=== PATIENT | female | born 1960 | race Caucasian/White ===

== ENCOUNTER 2024-12-06 16:39 | Inpatient (IN) | payer MEDICARE, SELFPAY ==
[2024-12-06] VITALS (11 sets, daily range): BP systolic 164–205; BP diastolic 93–137; BMI 39.0
[2024-12-06 12:15] LABS: % Basophils 0.4 % (0-2); % Eosinophils 0.1 % (0-6); % Immature Granulocytes 0.4 % (0-0.5); % Lymphocytes 18.6 % (20.5-51.1); % Monocytes 3.5 % (1.7-9.3); Absolute Basophils 0.1 10^3/uL (0-0.2); Absolute Immature Granulocytes 0.1 10^3/uL (0-0.05); Absolute Lymphocytes 2.6 10^3/uL (1.2-3.4); Absolute Monocytes 0.5 10^3/uL (0.1-0.6); Absolute Neutrophils 10.5 10^3/uL (1.4-6.5); Hematocrit 47.9 % (37.0-47.0); Hemoglobin 16.6 g/dL (12.0-16.0); Mean Corp Hgb Conc. 34.7 g/dL (33.0-37.0); Mean Corpuscular Hgb 29.4 pg (27.0-31.0); Mean Corpuscular Volume 84.9 fL (81.0-99.0); Mean Platelet Volume 8.3 fL (7.4-10.4); Nucleated Red Blood Cells % 0 %; Platelet Count 309 10^3/uL (130-400); Red Blood Cell Count 5.64 10^6/uL (4.20-5.40); Red Cell Dist. Width 13.6 % (11.5-14.5); White Blood Cell Count 13.7 10^3/uL (4.8-10.8)
--- NOTE | 2024-12-06 12:15 | ED.GENMED ---
History of Present Illness
General
Chief Complaint: Abdominal Symptoms
Source: patient
Exam Limitations: none
Time Seen by Provider: 12/06/24 11:59
Nursing documentation reviewed up to this point in time: agreed with
History of Present Illness
History of Present Illness:
Patient is a 64-year-old female who presents to the ER for evaluation. Patient started with nausea vomiting diarrhea last night. Patient does have a history of anxiety and reports now she is having a panic attack
She denies any associated fever or chills. She lives with her daughter and there were no other sick contacts. She does complain of crampy abdominal discomfort now. She was given Zofran prior to arrival and complains of persistent nausea.
She denies any urinary frequency urgency dysuria. Denies any associated chest pain shortness of breath.
Review of Systems
Review of Systems
Allergies reviewed?: Yes
All Other Systems: ROS reviewed and negative except as documented in HPI and ROS
Constitutional: Denies fever, fatigue or chills
EENT: Reports no symptoms
Respiratory: Reports no symptoms
Cardiac: Reports no symptoms
ABD/GI: Reports abdominal pain, nausea, vomiting and diarrhea
: Reports no symptoms
Musculoskeletal: Reports no symptoms
Skin: Reports no symptoms
Neurological: Reports no symptoms
Psychiatric: Reports no symptoms
Phy Exam
General Physical Exam
General Presentation: no apparent distress
General age: appears stated age
General Skin: warm and dry
General Habitus: normal
General Mental: alert
General Hydration: dry mucous membranes
Cardiovascular Exam
Cardiovascular Exam: regular rate/rhythm, no murmur and normal peripheral pulses
Pulmonary Exam
Pulmonary Exam: lungs clear
Gastrointestinal Exam
Gastrointestinal Exam: non tender and soft
Neurological Exam
Neurological Exam: alert and oriented x3
Musculoskeletal Exam
Musculoskeletal Exam: full ROM
Skin Exam
Skin Exam: normal color and warm/dry
Psychiatric Exam
Psychiatric Exam: normal mood/affect
Course
Orders/Labs/Results
Orders:
Orders
12/06/24 12:01
IV Insert/Care/Rem.- Treatment PRN
12/06/24 12:07
Complete Blood Count/With Diff Urgent
Comprehensive Metabolic Panel Urgent
Lipase Urgent
12/06/24 12:13
Lorazepam [Ativan] 1 mg IV NOW STA
12/06/24 12:14
Dicyclomine HCl [Bentyl] 20 mg IM NOW STA
12/06/24 12:15
0.9% Sodium Chloride 1000 ml [Nss] 1,000 ml IV BOLUS
Ondansetron Injectable [Zofran] 4 mg IV NOW STA
12/06/24 13:46
Metoclopramide [Reglan] 10 mg IV NOW STA
12/06/24 13:47
Diphenhydramine [Benadryl] 25 mg IV NOW STA
12/06/24 15:42
Lorazepam [Ativan] 1 mg IV NOW STA
12/06/24 15:43
Electrocardiogram (*1) Stat
Reason for Study: Other
Other Reason for Exam: chest pain
Cardiac Monitoring- Treatment ONCE
EKG- Treatment ONCE
12/06/24 15:58
Ondansetron Injectable [Zofran] 4 mg .ROUTE .STK-MED ONE
Ondansetron Injectable [Zofran] 4 mg IV NOW STA
12/06/24 16:22
Admit/Transfer Patient As Directed
Co-Sign Provider:
Level of Care: Inpatient admission
Assign to:: Telemetry
Physician / Group: alessandra
Diagnosis: gastroenteritis
Reason for Telemetry: Arrhythmia
Date to Stop Telemetry: 12/09/24
Time to Stop Telemetry: 11:00
Reason for Hospitalization: gastroenteritis
tachcyardia, htn urgency
Expected length of stay greater than two midnights?: Yes
ELOS- Estimated Length of Stay in days: 3
I certify the patient meets the requirements for IP care: Yes
PRN Pain Medication Management As Directed
May give lesser potent ordered pain med per pt: Yes
preference::
Protocol:: Medication orders for pain may be administered in a
manner that supports deferring to patient preference
when the pt is:
- Requesting an ordered lesser potent pain medication.
Least to most potent pain medications are defined
as: acetaminophen < NSAID < tramadol < opioids
(morphine, oxycodone, hydromorphone).
- Requesting a lesser dose of the same medication IF
ORDERED.
- Requesting a less intrusive route of administration
if both routes are prescribed by the provider (PO <
IV).
12/06/24 16:23
Code Status As Directed
Resuscitation Status: Full Code
12/06/24 16:27
COVID-19 Antigen Urgent
Source: Nasal Swab
Influenza A+B Rapid Molecular Urgent
CATHY Source: Nasal Swab
Specimen Description:
12/06/24 16:29
Abdomen/Pelvis w Contrast CT [CT Abd/pelvis W Iv Cont] Routine
Comment:
Reason For Exam: abdominal pain
12/06/24 16:30
Norovirus by PCR Routine
CATHY Source: Feces/Stool
Specimen Description:
Stool Culture Routine
CATHY Source: Feces/Stool
Specimen Description:
Stool For WBC Routine
CATHY Source: Feces/Stool
Specimen Description:
Metoprolol [Lopressor] 5 mg IV NOW STA
12/06/24 16:35
Ketorolac [Toradol] 10 mg IV NOW STA
12/06/24 19:21
0.9% Sodium Chloride 1000 ml [Nss] 1,000 ml IV 80 mls/hr
Alprazolam [Xanax] 1 mg PO TIDPRN PRN
Dextrose 50%-Water [Dextrose 50% Syringe] 12.5 grams IV [id number] PRN
Glucagon [GlucaGen] 1 mg IM PRN PRN
HydrALAZINE [Apresoline] 5 mg IV Q6HPRN PRN
Insulin Aspart Corrective Low [Novolog Flexpen-Low Resistance] See Protocol SC AC
Metoprolol [Lopressor] 5 mg IV Q6
Ondansetron Injectable [Zofran] 4 mg IV Q6HPRN PRN
12/06/24 19:21
Activity As Directed
Activity Level: As Tolerated
Bedside Glucose Monitoring As Directed
Frequency: AC&HS
Additional Instructions:: Change to q6h if pt on TPN, tube feeding or not eating
Vital Signs As Directed
Frequency: Per unit guidelines
DX Deep Vein Thrombosis Video Routine
12/06/24 20:00
Apixaban [Eliquis] 5 mg PO BID
Gabapentin [Neurontin] 300 mg PO BID
12/07/24 Breakfast
NPO
Allow oral meds: Yes
Allow clear liquids: Sips of Clears
Complete Blood Count/No Diff IN AM
Glycohemoglobin (HgbA1c) IN AM
Levothyroxine [Synthroid] 125 mcg PO DAILY @ 0600
12/08/24 06:00
Complete Blood Count/No Diff IN AM
12/09/24 06:00
Complete Blood Count/No Diff IN AM
12/09/24 11:00
DC Protocol for Telemetry ONCE
12/10/24 06:00
Complete Blood Count/No Diff IN AM
Abnormal Lab Results
12/06/24
12:07
WBC 13.7 H 10^3/uL
(4.8-10.8)
RBC 5.64 H 10^6/uL
(4.20-5.40)
Hgb 16.6 H g/dL
(12.0-16.0)
Hct 47.9 H %
(37.0-47.0)
Abs Immat Gran (auto) 0.1 H 10^3/uL
(0-0.05)
Absolute Neuts (auto) 10.5 H 10^3/uL
(1.4-6.5)
Neutrophils % 77.0 H %
(42.2-75.2)
Lymphocytes % 18.6 L %
(20.5-51.1)
Carbon Dioxide 17 L mmol/L
(22-30)
Creatinine 0.5 L mg/dL
(0.6-1.0)
Glucose 165 H mg/dl
(70-99)
Alkaline Phosphatase 158 H U/L
(38-126)
Albumin 5.1 H g/dl
(3.5-5.0)
12/06/24 12:07
12/06/24 12:07
Vital Signs
Initial and Last Documented VS:
Initial Vital Signs
Pulse Resp
103 17
12/06/24 12:04 12/06/24 12:04
Last Documented Vital Signs
Temp Pulse Resp BP Pulse Ox
98.8 F 99 20 138/69 95
12/07/24 19:17 12/07/24 19:17 12/07/24 19:17 12/07/24 19:17 12/07/24 19:17
MDM/Problems Addressed
Differential Diagnosis Includes:
Not limited to intractable nausea vomiting, viral syndrome, dehydration
MDM/Problems Addressed:
Patient is a 64-year-old female who presented with nausea vomiting diarrhea since yesterday. Patient does have a history of anxiety and presented extremely anxious. Patient was medicated multiple times with antiemetic fluids and anxiety medicine
however remains anxious and vomiting. Patient is hypertensive does have a history of hypertension.
Patient is afebrile with a white count of 13,000, normal renal function.
Patient will require admission for intractable nausea vomiting.
*Pulse Oximetry
Patient hypoxic: no
*EKG
Interpreted by ED Provider?: Yes
Heart Rate: 104
Rate: tachycardiac (Can I I swabbed her for completeness sake for admission)
Rhythm: sinus
Ischemia: no ischemia
*Critical Care Note
Total Time (30-74mins, 75-104mins- exclusive of procedures): Not Applicable
ED Attending Note
-
Portions of this chart may have been created with voice recognition software.� Occasional wrong word or��sound alike� substitutions may have occurred due to the inherent limitations of voice recognition software.
Discharge Plan
Departure
Patient Disposition: Admit
Date of Disposition: 12/06/24
Time of Disposition: 16:07
Admit to: Telemetry
Admit to doctor: hospitalist
Presentation/result/management discussed w/ accepting MD/DO: Hospitalist
Patient with high blood pressure during this ER visit?: Yes
Condition: Fair
Covid-19: Not Applicable
Discharge Problem:
intractable vomiting and diarrhea
Interventions
Interventions:
*Risk Screen - Suicide Last Done: 12/06/24 12:06
*General Assessment Last Done: 12/06/24 12:06
*Neglect/Abuse Screening Last Done: 12/06/24 12:06
*ED- Fall Risk Assessment Last Done: 12/06/24 12:01
*ED COVID-19 Vaccine History Last Done: 12/06/24 12:06
*Nursing Disposition Last Done: 12/06/24 19:22
EK-Fbdglm-Opehjqizld Assessment Last Done: 12/06/24 12:00
Discharge Date and Time
Discharge Date/Time: 12/06/24 19:23
[2024-12-06] MEDS: ZOFRAN 4 MG IV ×2 (12:19→16:00)
[2024-12-06] MEDS: ATIVAN 1 MG IV ×3 (12:19→23:00)
[2024-12-06] MEDS: NSS 1000 IV ×2 (12:21→20:17)
[2024-12-06] MEDS: BENTYL 20 MG IM (12:21)
[2024-12-06 12:34] LABS: ALT (SGPT) 20 U/L (0-35); AST (SGOT) 21 U/L (14-36); Albumin 5.1 g/dl (3.5-5.0); Alkaline Phosphatase 158 U/L (38-126); Blood Urea Nitrogen 9 mg/dl (7-17); Calcium 9.9 mg/dl (8.4-10.2); Carbon Dioxide 17 mmol/L (22-30); Chloride 106 mmol/L (98-107); Glucose 165 mg/dl (70-99); Lipase 70 U/L (23-300); Sodium 140 mmol/L (135-145); Total Bilirubin 0.9 mg/dl (0.2-1.3); Total Protein 7.8 g/dl (6.3-8.2); eGFR > 60.00
[2024-12-06] MEDS: BENADRYL 25 MG IV (13:53)
[2024-12-06] MEDS: REGLAN 10 MG IV (13:53)
--- NOTE | 2024-12-06 16:05 | HPS.HSE ---
Addendum entered and electronically signed by Viviana Oh MD 12/06/24 17:05:
I saw and examined the patient.
The MAGNETO REPAIRER or PA's note was reviewed and I agree with the note.
Comment:
CVS: S1-S2 normal
Chest: CTA B/L
Abdomen: Soft, Mild epigastric tenderness, Bowel sounds present
Extremities: No edema, normal pulses
COMMUNITY RELATIONS ADVISOR: Very fidgety and anxious , restless
Pt ate out yesterday ( Tacos) then got sick with N/V/D/ Numerous times . No fever, no other sick contacts at home.
EKG reviewed by me-sinus tachycardia transition to first-degree AV block with PACs. QTc 420
# Nausea Vomiting and Diarrhea
Possible GE.
But with tenderness, will get a CT
Admit to Obs
NPO except sips
Get stool studies,
Anti Nausea meds and analgesics
PPI
# Severe anxiety
Patient takes Xanax as outpatient
Ativan given because of intractable vomiting
Denies any depression
# Diabetes-patient takes Mounjaro and Jardiance
Because of n.p.o. status hold off
Accu checks and SSI
# Hypertension-elevated blood pressure likely secondary to distress
Poor p.o. intake
IV Lopressor because of intractable vomiting. As needed hydralazine also ordered
# Anion gap metabolic acidosis likely starvation ketosis-continue IV fluids and follow
# Hyperlipidemia-on Repatha
# Hypothyroidism-continue Synthroid
# Elevated hemoglobin 16.6 likely secondary to hemoconcentration
# Paroxysmal atrial fibrillation-continue Eliquis and IV metoprolol
# GERD-continue PPI
# DVT prophylaxis-SCDs
# Full code
Original Note:
Family Physician
-
Family Physician: INTERVIEWE UNKNOWN - PT NOT
Chief Complaint
-
n/v/d epigastric pain
History of Present Illness
64-year-old female with past medical history for A-fib, fibromyalgia, diabetes type 2 as with mid upper epigastric pain since last night. Patient stated multiple episodes of nausea vomiting and diarrhea. She is not able to tolerate any oral
intake. Patient is extremely anxious. She is dizzy. Denied headache or syncope. Denied chest pain or short of breath. Patient denied dysuria hematuria. Denied any sick contact.
Patient received Bentyl, Ativan, Reglan, normal saline, Zofran in ER
Medical History
Past Medical History
Past Medical History: Reports Other
Additional Past Medical History:
Type 2 diabetes
Hypertension
Hypothyroidism
Past Surgical History: Reports Other
Additional Past Surgical History:
Colon resection
Skin cancer removed
Bilateral knee replacement
Cholecystectomy
Total hysterectomy
Thyroidectomy
Social History
Tobacco: Non-smoker
Alcohol: Occasional
Drug: None
Living: With Family
Family History
Family History: Not pertinent
Allergies / Home Medications
Allergies reflects when Allergies were last updated in [facility].
Home Medications with original date entered in [facility]
Allergy/Medication List:
Allergies
Allergy/AdvReac Type Severity Reaction Status Date / Time
acetaminophen [From Tylenol] Allergy Pharmacy Verified 12/06/24 12:05
to Review
diltiazem [From Cardizem] Allergy Rash Verified 12/06/24 12:05
doxycycline [From Vibramycin] Allergy Rash Verified 12/06/24 12:05
Penicillins Allergy Rash Verified 12/06/24 12:05
Review of Systems
-
Constitutional: Reports No Symptoms
EENT: Reports No Symptoms
Respiratory: Reports No Symptoms
Cardiac: Reports No Symptoms
Abdomen/GI: Reports Abdominal Pain, Nausea, Vomiting and Diarrhea
: Reports No Symptoms
Musculoskeletal: Reports No Symptoms
Skin: Reports No Symptoms
Neurological: Reports No Symptoms
Endocrine: Reports No Symptoms
Hematologic/Lymphatic: Reports No Symptoms
Psych: Reports No Symptoms
Physical Exam
Vital Signs
Vital Signs
Temp Pulse Resp BP Pulse Ox
98.0 F 100 17 178/114 97
12/06/24 12:07 12/06/24 15:15 12/06/24 15:15 12/06/24 13:16 12/06/24 15:38
Physical Exam
General: Well Developed, Well Nourished and No Apparent Distress
HEENT: NormoCephalic, Moist mucous membranes and Atraumatic
Respiratory: Clear
Cardiac: S1/S2 and Regular Rhythm; No Murmur or Rub
GI: Soft, Non Distended, Normal Bowel Sounds and Tender; No Organomegaly
Rectal: Deferred by Provider
Musculoskeletal: No Clubbing, No Cyanosis and No Edema
Skin: No Rash
Neuro: AO x 3 and Nonfocal/grossly intact
Psych: Calm
Laboratory Results
-
12/06/24 12:07
12/06/24 12:07
Laboratory Results
Total Bilirubin 0.9 mg/dl (0.2-1.3) 12/06/24 12:07
AST 21 U/L (14-36) 12/06/24 12:07
ALT 20 U/L (0-35) 12/06/24 12:07
Alkaline Phosphatase 158 U/L (38-126) H 12/06/24 12:07
Lipase 70 U/L (23-300) 12/06/24 12:07
Data Reviewed
-
Lab Data: Labs Reviewed by me
Impression/Plan
-
# Intractable nausea/vomiting and diarrhea likely gastroenteritis
- Stool for culture, norovirus
- N.p.o. with sips of clears
-PPI
-Toradol once in ER
-CT abdomen pelvis
-Zofran prn for n/v
# Anxiety
-Xanax from home continued
# Leukocytosis likely stress reaction
- WBC 13.7, patient is afebrile
- Continue to monitor
# Hemoconcentration likely dehydration
# Anion gap metabolic acidosis
- Hemoglobin 16.6, hematocrit 47.9
- Fluids continued
- CBC in a.m.
# Hypertension emergency
# Sinus tachycardia
- Blood pressure elevated in ER
- EKG sinus tachycardia
-Hydralazine prn for HTN
-Lopressor every 6
-hold Lasix
#hypothyroidism
-levothyroxine continued
#type 2 DM
-sliding scale
-monitor blood sugar
-Jardiance
#atrial fib
-eliquis and metoprolol continued with hold parameter
#DVT prophylaxis
-scd
#CODE status
-full code
--- NOTE | 2024-12-06 16:28 | PHANOTE ---
med rec tech(12/06/24)- Patient was reluctant to go over medications in interview due to symptoms, but she allowed me to review the prescriptions I had on file from [facility] with her. She was unwilling to go further than that on meds, so may be
an incomplete list.
[2024-12-06] MEDS: TORADOL 10 MG IV (16:44)
[2024-12-06] MEDS: LOPRESSOR 5 MG IV ×3 (16:45→23:56)
[2024-12-06 17:20] LABS: COVID-19 Antigen Negative (Negative)
[2024-12-06] MEDS: PROTONIX IV 40 MG IV (17:46)
[2024-12-06] MEDS: NSS (PRESERVATIVE FREE) 10 ML IV (17:46)
[2024-12-06] MEDS: COMPAZINE 5 MG IV (20:17)
[2024-12-06] MEDS: MORPHINE SULFATE 2 MG IV ×2 (20:18→23:46)
--- NOTE | 2024-12-06 21:01 | PTCARENOTE ---
Received pt from the ED; AAOx3, walks independently from stretcher to hospital bed. Pt c/o active N/V and pain throughout abd 8/10 on pain scale. D/w covering CANDLE CUTTER, STAT morphine ordered and given, see MAR. Pt states Zofran does not relieve her
nausea but she has had success in the past with Compazine, PRN added and given, see MAR. Placed on tele, sinus tachycardia on the monitor. Hypoactive bowel sounds, abd tender to palpation. Remainder of assessment as documented. Hypertensive on
arrival, pt receiving Q6 IV Lopressor, will reassess BP s/p. Oriented to unit and call cook, updated on POC.
[2024-12-06] MEDS: NEURONTIN PO (22:25)
[2024-12-06] MEDS: ELIQUIS PO (22:25)
[2024-12-06] MEDS: APRESOLINE 5 MG IV (22:26)
[2024-12-06] MEDS: NSS (PRESERVATIVE FREE) 0.5 ML IV (23:01)
--- NOTE | 2024-12-06 23:05 | PTCARENOTE ---
Pt remains hypertensive s/p IV Lopressor, PRN Hydralazine given. Pt c/o anxiety and requesting medication but continues to c/o persistent nausea despite Compazine. D/w covering FLOOR MECHANIC pt unable to tolerate ordered PO Xanax, STAT IV Ativan ordered and
given, see OCT.
[2024-12-07 00:06] LABS: Glucose - Point of Care 131 mg/dl (70-99)
[2024-12-07] MEDS: COMPAZINE 5 MG IV ×2 (02:24→08:30)
[2024-12-07 03:40] VITALS: BP 139/85
[2024-12-07 05:29] VITALS: BMI 39.1
[2024-12-07] MEDS: LOPRESSOR 5 MG IV ×3 (05:53→23:32)
[2024-12-07 05:58] LABS: Glucose - Point of Care 116 mg/dl (70-99)
[2024-12-07] MEDS: ZOFRAN 4 MG IV (06:21)
[2024-12-07 07:08] LABS: Hematocrit 43.8 % (37.0-47.0); Hemoglobin 15.1 g/dL (12.0-16.0); Mean Corp Hgb Conc. 34.5 g/dL (33.0-37.0); Mean Corpuscular Hgb 29.5 pg (27.0-31.0); Mean Corpuscular Volume 85.5 fL (81.0-99.0); Mean Platelet Volume 8.3 fL (7.4-10.4); Platelet Count 279 10^3/uL (130-400); Red Blood Cell Count 5.12 10^6/uL (4.20-5.40); Red Cell Dist. Width 13.7 % (11.5-14.5); White Blood Cell Count 13.2 10^3/uL (4.8-10.8)
[2024-12-07 07:55] VITALS: BP 152/84
[2024-12-07] MEDS: NSS 1000 IV ×2 (08:17→22:01)
[2024-12-07] MEDS: PROTONIX IV 40 MG IV (08:21)
[2024-12-07] MEDS: NEURONTIN PO ×2 (08:22→22:02)
[2024-12-07] MEDS: SYNTHROID PO (08:22)
[2024-12-07] MEDS: ELIQUIS PO ×2 (08:22→22:02)
[2024-12-07] MEDS: NSS (PRESERVATIVE FREE) 10 ML IV (08:22)
[2024-12-07] MEDS: MORPHINE SULFATE 2 MG IV (08:38)
[2024-12-07 09:06] LABS: Hepatitis C Antibody Negative (Negative)
[2024-12-07 09:30] LABS: Amphetamines Negative (Negative); Barbiturates Negative (Negative)
[2024-12-07 09:31] LABS: Benzodiazepines Positive (Negative); Buprenorphine Negative (Negative); Cocaine Negative (Negative); Marijuana Positive (Negative); Methadone Negative (Negative); Methamphetamines Negative (Negative); Opiates Positive (Negative); Phencyclidine Negative (Negative)
[2024-12-07 09:32] LABS: Tricyclic Antidepressants Negative (Negative)
[2024-12-07 09:52] LABS: Glycohemoglobin (HgbA1c) 5.4 % (4.0-5.6)
[2024-12-07 10:54] LABS: Fentanyl, Urine Negative (Negative)
[2024-12-07 11:47] VITALS: BP 127/71
[2024-12-07 12:01] LABS: Glucose - Point of Care 114 mg/dl (70-99)
[2024-12-07] MEDS: ATIVAN 0.5 MG IV (12:02)
--- NOTE | 2024-12-07 12:34 | CM ---
Met with pt at bedside; Initial assessment completed
Pt lives with her daughter and son-in-law in a 2 story home; 2 [address], FF set-up
Independent, ambulates with out device, drives
DME - none
SNF/HH - no past hx JAG in past for outpatient PT
Has ride at d/c
PCP - Crispin Villanueva
Pharm - [facility]
Plan - anticipate home no needs
--- NOTE | 2024-12-07 14:26 | CS.PSYCHR ---
Consult Summary - Psychiatry
-
Pt is a 64 yo female with history of anxiety, past medical history of A-fib, fibromyalgia, diabetes type 2, who presented c/o multiple episodes of nausea, vomiting and diarrhea. She has not able to tolerate any oral intake, reportedly extremely
anxious. Pt was given Ativan 1 mg IV yesterday (day of admission) afternoon and night. Pt seen resting in bed, not in acute distress at present. She reports nausea/vomiting make her very anxious/panicky. She is prescribed Xanax 1 mg TID by her
PCP, but reports she does not take it every day, only on prn basis a couple times per week at night and for situational anxiety/panic, sometimes takes 1/2 tab. Pt complains of itching and redness from dose of IV morphine, causing her to ask for
Benadryl. Pt denies any depression. She reports some recent stress from working on a project with her , who is a CPA.
Psych Hx: anxiety/ situational panic, reports she was on Xanax for 20 years, then weaned herself off over a summer. She resumed Xanax a few years ago.
No hx of inpatient treatment. Past therapy/marriage counseling years ago. Brand Xanax 1 mg prescribed by her PCP- [facility] shows last refilled on 11/22/24 #90 tabs
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 Has worked helping her
MSE: alert, oriented, calm, cooperative, pleasant, with good eye contact. Speech coherent, thought goal-directed. Affect full and appropriate, mood stable, mildly anxious at present. Insight appears good
Imp: Unspecified anxiety, with panic. Situational anxiety reaction due to nausea/vomiting. Long-term Rx Xanax 1 mg on prn basis
Rec: Would continue to utilize IV Ativan prn, need to increase to at least 1 mg due to relative potency compared to home med Xanax
Would resume established Xanax 1 mg prn when able to take po. Outpatient f/u with PCP when medically stable.
Will follow
--- NOTE | 2024-12-07 14:36 | W.PN.HOSP.TC ---
Today's Communication/Plan
-
Start clears and advance as tolerated to full liquids and to diabetic diet
Assessment / Plan
Assessment / Plan
CVS: S1-S2 normal
Chest: CTA B/L
Abdomen: Soft, Mild epigastric tenderness, Bowel sounds present
Extremities: No edema, normal pulses
ADMINISTRATION SPECIALIST: Very fidgety and anxious , restless
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 No fever, no other sick contacts at home.
EKG reviewed by me-sinus tachycardia transition to first-degree AV block with PACs. QTc 420
CT abdomen and pelvis-postoperative changes of right hemicolectomy with mild wall thickening throughout the procedure: Representing mild colitis. Prior cholecystectomy. Small hiatal hernia.
# Nausea Vomiting and Diarrhea
Possible GE.
Stool studies has not been obtained because of lack of diarrhea
Anti Nausea meds and analgesics
PPI
Start clears and advance as tolerated
One epidose of diarrhea this morning per patient but could not get a sample
She feels slightly nauseous but no vomiting now.
# Severe anxiety
Patient takes Xanax as outpatient
Ativan given because of intractable vomiting
Denies any depression
Psychiatry evaluation
# Diabetes-patient takes Mounjaro and Jardiance
Because of n.p.o. status hold off
Accu checks and SSI
# Hypertension-elevated blood pressure likely secondary to distress
Poor p.o. intake
IV Lopressor because of intractable vomiting. As needed hydralazine also ordered
Lopressor can be switched to p.o. when able
# Anion gap metabolic acidosis likely starvation ketosis-continue IV fluids and follow. Unclear why labs are still pending.
# Hyperlipidemia-on Repatha
# Hypothyroidism-continue Synthroid
# Elevated hemoglobin 16.6 likely secondary to hemoconcentration
# Paroxysmal atrial fibrillation-continue Eliquis and IV metoprolol
# Obesity per BMI criteria-39
# GERD-continue PPI
# DVT prophylaxis-Eliquis
# Full code
Discussed with nursing
Anticipated Discharge: Within 24 hours
Subjective/Interval History
-
Date of Service: December 07, 2024
Objective Data
-
Labs:
Laboratory Results
12/07/24 12/07/24 12/07/24
05:59 06:00 08:19
WBC 13.2 H
Hgb 15.1
Hct 43.8
Plt Count 279
Sodium Pending Cancelled
Potassium Pending Cancelled
Chloride Pending Cancelled
Carbon Dioxide Pending Cancelled
BUN Pending Cancelled
Creatinine Pending Cancelled
Glucose Pending Cancelled
Calcium Pending Cancelled
Vital Signs:
Vital Signs
Temp Pulse Resp BP Pulse Ox
98.4 F 108 22 127/71 94
12/07/24 11:47 12/07/24 11:47 12/07/24 11:47 12/07/24 11:47 12/07/24 11:47
I&O
12/06/24 12/07/24 12/08/24
06:59 06:59 06:59
Intake Total 1360 / 1360 480 / 480
Balance 1360 / 1360 480 / 480
[2024-12-07 14:59] LABS: Blood Urea Nitrogen 9 mg/dl (7-17); Calcium 9.1 mg/dl (8.4-10.2); Carbon Dioxide 16 mmol/L (22-30); Chloride 109 mmol/L (98-107); Estimated Creatinine Clearance 105 ml/min; Glucose 110 mg/dl (70-99); Potassium 3.3 mmol/L (3.5-5.1); Sodium 141 mmol/L (135-145); eGFR > 60.00
[2024-12-07 15:55] VITALS: BP 96/55
[2024-12-07 16:16] LABS: Glucose - Point of Care 102 mg/dl (70-99)
[2024-12-07] MEDS: ATIVAN 1 MG IV ×2 (16:31→23:25)
[2024-12-07] MEDS: LOPRESSOR IV (16:33)
[2024-12-07] MEDS: KCL 160 MEQ IV (16:35)
[2024-12-07] MEDS: ATARAX 10 MG PO (17:27)
[2024-12-07 19:17] VITALS: BP 138/69
[2024-12-07 21:17] LABS: Glucose - Point of Care 87 mg/dl (70-99)
[2024-12-07] MEDS: NSS (PRESERVATIVE FREE) 0.5 ML IV (23:26)
[2024-12-07 23:36] VITALS: BP 108/71
[2024-12-08] MEDS: NEURONTIN 300 MG PO ×2 (00:27→08:25)
[2024-12-08 03:26] VITALS: BP 110/73
[2024-12-08 05:35] VITALS: BMI 41.4
[2024-12-08] MEDS: LOPRESSOR 5 MG IV (06:04)
[2024-12-08] MEDS: SYNTHROID 125 MCG PO (06:05)
[2024-12-08] MEDS: NSS (PRESERVATIVE FREE) 0.5 ML IV ×3 (06:05→16:27)
[2024-12-08] MEDS: ATIVAN 1 MG IV ×3 (06:06→16:27)
[2024-12-08 07:29] LABS: Glucose - Point of Care 93 mg/dl (70-99)
[2024-12-08 07:40] VITALS: BP 145/68
[2024-12-08] MEDS: PROTONIX IV 40 MG IV (08:25)
[2024-12-08] MEDS: ELIQUIS 5 MG PO (08:25)
[2024-12-08] MEDS: NSS (PRESERVATIVE FREE) 10 ML IV (08:25)
[2024-12-08] MEDS: NSS 1000 IV (08:28)
[2024-12-08 08:44] LABS: Hematocrit 42.3 % (37.0-47.0); Hemoglobin 14.5 g/dL (12.0-16.0); Mean Corp Hgb Conc. 34.3 g/dL (33.0-37.0); Mean Corpuscular Hgb 29.8 pg (27.0-31.0); Mean Corpuscular Volume 86.9 fL (81.0-99.0); Mean Platelet Volume 8.4 fL (7.4-10.4); Platelet Count 236 10^3/uL (130-400); Red Blood Cell Count 4.87 10^6/uL (4.20-5.40); White Blood Cell Count 8.7 10^3/uL (4.8-10.8)
--- NOTE | 2024-12-08 10:16 | W.PN.HOSP.TC ---
Addendum entered and electronically signed by Viviana Oh MD 12/08/24 16:23:
Tolerated diet
Anxious to go home
Discharge time 32 min
Original Note:
Today's Communication/Plan
-
Stool studies if we can obtain sample
Advance diet
She wants to keep Benzo IV for now
Metoprolol PO
BMP
Assessment / Plan
Assessment / Plan
CVS: S1-S2 normal
Chest: CTA B/L
Abdomen: Soft, NT, Bowel sounds present
Extremities: No edema, normal pulses
GRIP: Much Calmer, pleasant.
Feels better
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 No fever, no other sick contacts at home.
EKG reviewed by me-sinus tachycardia transition to first-degree AV block with PACs. QTc [address] abdomen and pelvis-postoperative changes of right hemicolectomy with mild wall thickening throughout the procedure: Representing mild colitis. Prior cholecystectomy. Small hiatal hernia.
# Nausea Vomiting and Diarrhea
Possible GE.
Stool studies has not been obtained because of lack of diarrhea, she has very small amount of water from rectum
Anti Nausea meds and analgesics
PPI
Tolerating FLD and advance as tolerated to ADA
She feels better
# Severe anxiety
Patient takes Xanax as outpatient
Ativan given because of intractable vomiting
Denies any depression
Psychiatry evaluation appreciated
Ativan dose adjusted
# Diabetes-patient takes Mounjaro and Jardiance
Because of n.p.o. status hold off
Accu checks and SSI
# Hypertension-elevated blood pressure likely secondary to distress
Lopressor changed to PO
# Hypokalemia replaced.
# Anion gap metabolic acidosis likely starvation ketosis-
# Hyperlipidemia-on Repatha
# Hypothyroidism-continue Synthroid
# Elevated hemoglobin 16.6 likely secondary to hemoconcentration
# Paroxysmal atrial fibrillation-continue Eliquis and IV metoprolol
# Obesity per BMI criteria-39
# GERD-continue PPI
# DVT prophylaxis-Eliquis
# Full code
Discussed with nursing
Anticipated Discharge: Within 24 hours
Subjective/Interval History
-
Date of Service: December 08, 2024
Objective Data
-
Labs:
Laboratory Results
12/08/24
07:07
WBC 8.7
Hgb 14.5
Hct 42.3
Plt Count 236
Vital Signs:
Vital Signs
Temp Pulse Resp BP Pulse Ox
97.6 F 84 18 145/68 96
12/08/24 07:40 12/08/24 07:40 12/08/24 07:40 12/08/24 07:40 12/08/24 07:40
I&O
12/07/24 12/08/24 12/09/24
06:59 06:59 06:59
Intake Total 1360 / 1360 2039
Balance 1360 / 1360 2039
[2024-12-08 10:55] VITALS: BP 133/76
[2024-12-08] MEDS: TOPROL XL 100 MG PO (10:56)
[2024-12-08] MEDS: SODIUM BICARBONATE 650 MG PO (10:56)
[2024-12-08 11:05] LABS: Glucose - Point of Care 80 mg/dl (70-99)
--- NOTE | 2024-12-08 11:19 | CM ---
Chart reviewed; met with pt at bedside
Advancing diet
Poss d/c later today
Reviewed IMM
Has ride home when d/c'ed
Plan - anticipate home no needs
[2024-12-08 11:34] LABS: Blood Urea Nitrogen 9 mg/dl (7-17); Calcium 8.9 mg/dl (8.4-10.2); Carbon Dioxide 24 mmol/L (22-30); Chloride 108 mmol/L (98-107); Estimated Creatinine Clearance 109 ml/min; Glucose 87 mg/dl (70-99); Potassium 3.3 mmol/L (3.5-5.1); Sodium 139 mmol/L (135-145); eGFR > 60.00
--- NOTE | 2024-12-08 11:56 | W.PN.UPDATE ---
Update Note
Progress Note Update
patient seen chart reviewed. spoke with nursing. pt admitted for gastroenteritis. she has hx orthopedic issues, a fib, obesity, disc disease, diabetes, htn hld and gerd. she is feeling much better at this point. the patient was very pleasant. she
is hoping to leave later today. she shared with me some of her life hx. she has some hx anxiety and uses xanax prn usually only in the evening but not every evening. feels the ativan she has been taking here has helped. says she is much more
anxious in the hospital than at home. we did discuss the downside of bzp use as you age . 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 she will followup w pcp at id. psych signing off.
[2024-12-08] MEDS: KCL 40 MEQ PO (12:18)
[2024-12-08 12:30] LABS: Magnesium 1.9 mg/dl (1.6-2.3)
--- NOTE | 2024-12-08 13:58 | PN.CDI ---
Addendum entered and electronically signed by Viviana Oh MD 12/10/24 18:24:
BP from stress
Documentation is complete at this time.
Original Note:
CDI
- -
CDI:
Physician Documentation Request
Admit Date: 12/06/24 16:39
Dear Doctor Althea,
Please review the following and provide your response in the progress notes.
Clinical Indicators:
- 12/06 H&P pmh htn, home medication metoprolol
- Severe anxiety
- 5mg IV Hydralazine given x1
- 12/08 PN 'Hypertension-elevated blood pressure likely secondary to distress'
Selected Entries
12/06/24
12:07 12/06/24
16:04 12/06/24
16:45
Blood pressure 205/137 185/108 185/108
12/06/24
16:47 12/06/24
17:47 12/06/24
22:26
Blood pressure 202/101 197/104 187/93
Clarify which, if any of the following, is a more accurate diagnosis reflecting the type and acuity of the documented hypertension:
Essential primary hypertension only
Hypertensive Urgency - B/P is severely elevated (systolic > or = to 180 or diastolic > or = to 110) but there is no associated organ damage. Symptoms may include: headache, shortness of breath, nosebleeds, severe anxiety. Treatment usually consists
of addition to or adjusting of oral medications and does not generally necessitate hospitalization.
Hypertensive Emergency - B/P is severely elevated (systolic > or = to 180 or diastolic > or = to 110) but can occur at lower levels especially in patients who did not previously have high B/P. There is usually associated organ damage. Symptoms may
include: memory loss, LOC, CVA, NC, angina, renal failure, pulmonary edema. Generally requires more aggressive treatment and a hospitalization.
Hypertensive Crisis - an acute elevation in B/P that can lead to organ damage. Broad term that is further differentiated to include urgency or emergency based on presence of organ damage.
Other (please specify)
Use of terms such as suspected, likely, concern for, or probable (associated with a specific diagnosis that is being evaluated, monitored, or treated as if it exists) are acceptable and can be coded in the inpatient setting, when documented at the
time of discharge.
Thank you,
Sarah Beth Edmonds RN
CDI Specialist
Please use your independent medical judgment in providing your response.
--- NOTE | 2024-12-08 14:23 | PN.CDI ---
Addendum entered and electronically signed by Viviana Oh MD 12/10/24 18:23:
Documentation is complete at this time.
Original Note:
CDI
- -
CDI:
Physician Documentation Request
Admit Date: 12/06/24 16:39
Dear Doctor Althea,
Please review the following and provide your response in the progress notes.
Clinical Indicators:
- On admission: WBC 13.7, HR 90-100s, RR 20-30s
- 12/08 PN 'Nausea Vomiting and Diarrhea...possible GE'
- 12/06 CT Abd/pel 'mild colitis'
Please clarify which most accurately describes the patient:
Sepsis
Systemic manifestations of infection, with 2 or more SIRS criteria which include:
Fever > 100.4 degrees F or hypothermia < 96.8 degrees F
Leukocytosis - WBC > 12,000 or leukopenia, WBC < 4,000 or > 10% bands
Tachycardia - > 90 beats per minute
Tachypnea - RR > 20 breaths per minute or PaCO2 < 32 mmHg
Source: Merck Manual 2012
Indicate the known or suspected organism
Indicate the known or suspected underlying infection, such as UTI, pneumonia or cellulitis
Indicate if a suspected bacterial infection of unknown source
Indicate if associated with an implanted device such as a F/C, PICC line, orthopedic hardware etc.
Indicate if there is associated organ dysfunction, such as renal or respiratory failure
SIRS due to a non-infectious source
Indicate the known or suspected etiology
Indicate if there is associated organ dysfunction, such as renal or respiratory failure
Other
Use of terms such as suspected, likely, concern for, or probable (associated with a specific diagnosis that is being evaluated, monitored, or treated as if it exists) are acceptable and can be coded in the inpatient setting, when documented at the
time of discharge.
Thank you,
Sarah Beth Edmonds RN
CDI Specialist
Please use your independent medical judgment in providing your response.
[2024-12-08 16:04] LABS: Glucose - Point of Care 83 mg/dl (70-99)
--- NOTE | 2024-12-08 16:22 | W.DS.TRANS ---
Addendum entered and electronically signed by Viviana Oh MD 12/08/24 17:24:
Dictation- [id number]
Original Note:
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
-
Discharge Instructions:
Discharge Diagnosis/Procedures Nausea vomiting and diarrhea
Severe anxiety
Diabetes
Hypertension
Hypokalemia
Hyperlipidemia
Hypothyroidism
Atrial fibrillation
Diet Diabetic, Carb Controlled,Low Residue
Activity As tolerated
Driving Restrictions As prior to admission
Instructions:
Stand-Alone Forms:
Changes to Home Medications: No
Discharge Medications:
DC Medications w/original date entered in [facility]
alprazolam 1 mg tablet 1 mg PO TIDPRN PRN anxiety 12/06/24
apixaban 5 mg tablet (Eliquis) 5 mg PO BID Blood Clot Prevention/Tx 12/06/24
empagliflozin 25 mg tablet (Jardiance) 25 mg PO DAILY Diabetes 12/06/24
evolocumab 140 mg/mL subcutaneous pen injector (Repatha SureClick) 140 mg SC Q2W High Cholesterol 12/06/24
furosemide 20 mg tablet 20 mg PO DAILY Fluid Retention/Swelling 12/06/24
gabapentin 300 mg capsule 300 mg PO BID Neurological Condition 12/06/24
levothyroxine 125 mcg tablet 125 mcg PO DAILY Thyroid 12/06/24
metoprolol succinate 100 mg tablet,extended release 24 hr 100 mg PO BID Heart Disease/Condition 12/06/24
potassium chloride 20 mEq tablet,extended release 20 meq PO DAILY Supplement 12/06/24
rabeprazole 20 mg tablet,delayed release 20 mg PO DAILY Gastrointestinal Issue 12/06/24
tirzepatide 5 mg/0.5 mL subcutaneous pen injector (Mounjaro) 5 mg SC GAVIRIA Diabetes 12/06/24
Home Medication Changes
Pending Results: No
[2024-12-08 16:46] VITALS: BP 142/75
--- NOTE | 2024-12-08 17:29 | PTCARENOTE ---
Patient discharged home, transported by daughter. This RN removed patient's IV, tele pack removed by this RN. Patient dressed and gathered belongings independently in room. This RN reviewed discharge instructions with patient and patient's daughter
at bedside, both verbalized understanding. Patient provided stool sample prior to DC, this RN sent down to lab, patient to get results through PCP per MD. Patient refusing staff escort and wheelchair, ambulated down to daughter's car with daughter.
== END 2024-12-08 17:33 | disposition home or self-care (01) | DRG 880 ==
LOC: 2 NORTH 16:39
PROVIDERS: Nurse Practitioner; Registered Nurse; ADMITTING PHYSICIAN Hospitalist; CONSULT PHYSICIAN Psychiatry & Neurology Psychiatry; EMERGENCY PHYSICIAN Student in an Organized Health Care Education/Training Program
DX: F41.0 Panic disorder [episodic paroxysmal anxiety] (principal); I16.1 Hypertensive emergency; E87.20 Acidosis, unspecified; F41.1 Generalized anxiety disorder; K52.9 Noninfective gastroenteritis and colitis, unspecified; E11.9 Type 2 diabetes mellitus without complications; I10 Essential (primary) hypertension; E78.5 Hyperlipidemia, unspecified; K21.9 Gastro-esophageal reflux disease without esophagitis; I48.0 Paroxysmal atrial fibrillation; E89.0 Postprocedural hypothyroidism; T42.4X5A Adverse effect of benzodiazepines, initial encounter; E86.0 Dehydration; E66.9 Obesity, unspecified; I44.0 Atrioventricular block, first degree; K44.9 Diaphragmatic hernia without obstruction or gangrene; E87.6 Hypokalemia; M79.7 Fibromyalgia; Y92.9 Unspecified place or not applicable; Z96.653 Presence of artificial knee joint, bilateral; Z90.49 Acquired absence of other specified parts of digestive tract; Z79.84 Long term (current) use of oral hypoglycemic drugs; Z79.85 Long-term (current) use of injectable non-insulin antidiabetic drugs; Z90.710 Acquired absence of both cervix and uterus; Z79.01 Long term (current) use of anticoagulants; Z85.828 Personal history of other malignant neoplasm of skin; Z88.6 Allergy status to analgesic agent; Z88.1 Allergy status to other antibiotic agents; Z88.0 Allergy status to penicillin; Z11.52 Encounter for screening for COVID-19; Z79.890 Hormone replacement therapy; Z68.39 Body mass index [BMI] 39.0-39.9, adult
CPT/HCPCS: 74177; 80048; 80053; 80306; 80307; 82962; 83036; 83690; 83735; 85025; 85027; 86803; 87045; 87046; 87427; 87502; 87798; 87811; 89055; 93005; 96361; 96372; 96374; 96375; 96376; 99285; Q9967

== ENCOUNTER 2025-05-28 20:28 | Emergency (ER) | payer MEDICARE, OTHER, SELFPAY ==
[2025-05-28 20:31] VITALS: BP 143/91
[2025-05-28] MEDS: NSS 1000 IV (20:45)
[2025-05-28 20:51] VITALS: BMI 42.0
[2025-05-28 20:51] LABS: Glucose - Point of Care 129 mg/dl (70-99)
[2025-05-28 20:56] LABS: Hematocrit 44.6 % (37.0-47.0); Hemoglobin 15.2 g/dL (12.0-16.0); Mean Corp Hgb Conc. 34.1 g/dL (33.0-37.0); Mean Corpuscular Volume 85.4 fL (81.0-99.0); Nucleated Red Blood Cells % 0 %; Platelet Count 274 10^3/uL (130-400); Red Cell Dist. Width 12.7 % (11.5-14.5)
[2025-05-28 21:00] VITALS: BP 138/81
[2025-05-28 21:10] LABS: ALT (SGPT) 20 U/L (0-35); AST (SGOT) 19 U/L (14-36); Albumin 4.8 g/dl (3.5-5.0); Alkaline Phosphatase 138 U/L (38-126); Blood Urea Nitrogen 16 mg/dl (7-17); Calcium 9.6 mg/dl (8.4-10.2); Carbon Dioxide 19 mmol/L (22-30); Chloride 107 mmol/L (98-107); Estimated Creatinine Clearance 110 ml/min; Glucose 150 mg/dl (70-99); Lipase 70 U/L (23-300); Potassium 3.4 mmol/L (3.5-5.1); Sodium 137 mmol/L (135-145); Total Protein 7.7 g/dl (6.3-8.2); eGFR > 60.00
[2025-05-28 21:21] LABS: Troponin I < 0.012 ng/ml
[2025-05-28 21:23] VITALS: BP 139/70
--- NOTE | 2025-05-28 21:23 | EDRN ---
Pt says she was vomiting 'for a long time' and had diarrhea then she passed out in the bathroom. Pt does not think she hit her head. No loc. Pt 'out' for second or two. Vomiting and diarrhea started at 1630. No ill contacts. Abd cramping from
diarrhea. Pt did not take anything for diarrhea. Chills, no fever/cough. Pt had chest pain earlier when she thought she was in afib 'throwing pvcs.' Pt says she does not feel that now but 'I have really bad anxiety now.' No urinary symptoms,
headache. Pt says when she looked at the doctor earlier she felt she could not focus. No double/blurred vision. Pt adds earlier today she had trouble focusing on the TV. Pt says she got dizzy which caused her to pass out. Pt feels she cannot
lift her legs up, has numbness in her hands and feet 'like they are 1000 pounds.' Pt breathing slowly and deeply while talking with this RN to control her anxiety. Nausea currently.
[2025-05-28] MEDS: ATIVAN 1 MG PO (21:39)
--- NOTE | 2025-05-28 21:42 | EDRN ---
Little sip of water with ativan and pt's slurred speech went away.
--- NOTE | 2025-05-28 21:54 | ED.GENMED ---
History of Present Illness
General
Chief Complaint: Fainting/Passed Out
Time Seen by Provider: 05/28/25 20:41
History of Present Illness
History of Present Illness:
64-year-old female with history of atrial fibrillation on Eliquis, diabetes, anxiety, hypertension, hypothyroidism presenting to the emergency department for nausea, vomiting, diarrhea. Patient reports symptoms started around 4 PM after she ate
some crab. She then was sitting on the toilet and believes that she had a syncopal episode. She is unsure whether or not she struck her head. She notes that she has very anxious and is feeling lightheaded which is why she called the medics. On
medics arrival, also noting that her speech feels off. Also reports generalized weakness and fatigue. She thinks that she may have went into A-fib. Denies chest pain. Denies any significant abdominal pain. Denies any focal weakness or sensory
deficits. Notes generalized tingling to her extremities. Denies additional acute medical complaints
Phy Exam
Physical Exam
Physical Exam:
General: Well-appearing, no clinical signs of dehydration, nontoxic and in no acute distress
HEENT: protecting airway
Neck: appears supple
CV: Normal heart rate, regular rhythm
Resp: No accessory muscle use, no increased work of breathing, lungs clear to auscultation bilaterally
Abd: Soft and non-distended, no tenderness to palpation
Extremities: No deformities, no swelling.
Neuro: alert, no focal neurologic deficit, intact speech. No facial droop. Generalized weakness, with symmetric strength bilaterally
: deferred
Rectal: deferred
Psych: Anxious
Skin: Intact
Course
Orders/Labs/Results
Orders:
Orders
05/28/25 20:42
EKG- Treatment ONCE
Urinalysis Reflex To Culture Urgent
0.9% Sodium Chloride 1000 ml [Nss] 1,000 ml IV BOLUS
Ondansetron Injectable [Zofran] 4 mg IV NOW STA
05/28/25 20:43
Electrocardiogram (*1) Urgent
Reason for Study: Syncope
CT Head W/o Iv Contrast Urgent
Comment:
Reason For Exam: slurred speech, anxiety, general weakness
05/28/25 20:47
Complete Blood Count/With Diff Urgent
Comprehensive Metabolic Panel Urgent
Lipase Urgent
Troponin I Urgent
05/28/25 21:35
Lorazepam [Ativan] 1 mg PO NOW STA
Abnormal Lab Results
05/28/25 05/28/25
20:47 20:50
WBC 19.7 H 10^3/uL
(4.8-10.8)
Abs Immat Gran (auto) 0.1 H 10^3/uL
(0-0.05)
Absolute Neuts (auto) 16.9 H 10^3/uL
(1.4-6.5)
Absolute Monos (auto) 1.1 H 10^3/uL
(0.1-0.6)
Immature Gran % 0.7 H %
(0-0.5)
Neutrophils % 85.4 H %
(42.2-75.2)
Lymphocytes % 7.2 L %
(20.5-51.1)
Potassium 3.4 L mmol/L
(3.5-5.1)
Carbon Dioxide 19 L mmol/L
(22-30)
Creatinine 0.5 L mg/dL
(0.6-1.0)
Glucose 150 H mg/dl
(70-99)
Alkaline Phosphatase 138 H U/L
(38-126)
POC Glucose 129 H mg/dl
(70-99)
05/28/25 20:47
05/28/25 20:47
Vital Signs
Initial and Last Documented VS:
Initial Vital Signs
Temp Pulse Resp BP Pulse Ox
97.4 F 80 18 143/91 96
05/28/25 20:31 05/28/25 20:31 05/28/25 20:31 05/28/25 20:31 05/28/25 20:31
Last Documented Vital Signs
Temp Pulse Resp BP Pulse Ox
97.4 F 81 19 125/66 95
05/28/25 20:31 05/28/25 23:00 05/28/25 23:00 05/28/25 23:00 05/28/25 23:00
MDM/Problems Addressed
MDM/Problems Addressed:
64-year-old female with history of A-fib on Eliquis, diabetes, hypertension, anxiety presenting for nausea, vomiting, diarrhea and subsequent syncopal episode. Vital signs on arrival are significant for mild hypertension.
On exam patient is in no acute distress, however is very anxious. She notes tingling to all extremities. Suspect that she is having a mild panic attack. Regarding preceding symptoms of vomiting and diarrhea, suspect likely GI illness, likely
precipitated by food. Notes that she was eating food before symptom onset. No focal tenderness to the abdomen without concern for serious intra-abdominal process or infection. Patient notes after the vomiting and the diarrhea she had a syncopal
episode. Suspect likely vasovagal from volume depletion and the active vomiting. EKG obtained on arrival, nonischemic, no arrhythmia. Will screen further with laboratory analysis. Patient also reports that she feels like her speech is off.
However, notes that speech has improved upon arrival to the hospital. No present focal neurologic deficits without concern for CVA. She is unsure whether or not she struck her head, is on Eliquis, so we will obtain CT brain imaging.
22:00 - CT head is negative. Labs show leukocytosis, however suspected to be reactive. Patient afebrile, nontoxic. Patient is still feeling anxious so we will administer Ativan. Receiving IV fluids and Zofran. Will reassess
23:30- On reassessment patient is sleeping comfortably, notes resolution of her symptoms. Speech has normalized after Ativan. Continue to suspect symptoms from panic attack. Preceding nausea and vomiting with diarrhea again suspected to be
gastroenteritis, foodborne. Vital stable. Feel stable for discharge with outpatient supportive therapy. Return precautions discussed and patient verbalized understanding
*Pulse Oximetry
SaO2: 97
Oxygen Mode of Delivery: Room air
Patient hypoxic: no
*EKG
Interpreted by ED Provider?: Yes
EKG Intrepretation Date: 05/28/25
EKG Intrepretation Time: 21:58
Interpretation: normal
Heart Rate: 77
Rate: normal
Rhythm: sinus
[place]: normal axis
Interval: normal interval
QRS Pattern: normal QRS
Ischemia: no ischemia
*Critical Care Note
Total Time (30-74mins, 75-104mins- exclusive of procedures): Not Applicable
ED Attending Note
-
Portions of this chart may have been created with voice recognition software.� Occasional wrong word or��sound alike� substitutions may have occurred due to the inherent limitations of voice recognition software.
Discharge Plan
Departure
Prescriptions:
No Action
rabeprazole 20 mg Tablet,Delayed Release (Dr/Ec)
20 mg PO DAILY
alprazolam 1 mg Tablet
1 mg PO TIDPRN PRN (Reason: anxiety)
metoprolol succinate 100 mg Tablet Extended Release 24 Hr
100 mg PO BID
levothyroxine 125 mcg Tablet
125 mcg PO DAILY
gabapentin 300 mg Capsule
300 mg PO HS
furosemide 20 mg Tablet
20 mg PO DAILY
Eliquis 5 mg Tablet
5 mg PO BID
potassium chloride 20 mEq Tablet Extended Release
20 meq PO DAILY
Jardiance 25 mg Tablet
25 mg PO DAILY
Repatha SureClick 140 mg/mL Pen Injector
140 mg SC Q2W
Referrals:
UNKNOWN,NO INTERVIEW [Family Provider]
Interventions
Interventions:
*Risk Screen - Suicide Last Done: 05/28/25 20:31
*General Assessment Last Done: 05/28/25 20:31
*Neglect/Abuse Screening Last Done: 05/28/25 20:31
*ED- Fall Risk Assessment Last Done: 05/28/25 20:51
*ED COVID-19 Vaccine History Last Done: 05/28/25 20:51
*ED Influenza Vaccine History Last Done: 05/28/25 20:51
ED- Cardiac Assessment Last Done: 05/28/25 21:35
ED- Neurological Assessment Last Done: 05/28/25 21:35
Discharge Date and Time
Print Language: SLOVAK
[2025-05-28 22:00] VITALS: BP 131/66
--- NOTE | 2025-05-28 22:22 | EDRN ---
Pt's oxygen level dropped into 70's so pt was placed from supine to semi fowlers - pt fell asleep, pulse ox then dropped to mid 80's room air. Placed pt on 2 lpm O2 - Dr Pradhan updated. Pulse ox mid to high 90's on O2
[2025-05-28 23:00] VITALS: BP 125/66
== END 2025-05-28 23:55 | disposition home or self-care (01) ==
LOC: EMR 20:28
PROVIDERS: EMERGENCY PHYSICIAN Student in an Organized Health Care Education/Training Program
DX: K52.9 Noninfective gastroenteritis and colitis, unspecified (principal); R55 Syncope and collapse; I48.91 Unspecified atrial fibrillation; E11.9 Type 2 diabetes mellitus without complications; I10 Essential (primary) hypertension; F41.9 Anxiety disorder, unspecified; E03.9 Hypothyroidism, unspecified; Z79.01 Long term (current) use of anticoagulants
CPT/HCPCS: 96360; 99284; 70450; 80053; 82962; 83690; 84484; 85025; 93005